=== PATIENT | male | born 1970 | race Caucasian/White ===

== ENCOUNTER 2020-11-03 21:48 | Emergency (ER) | payer MEDICAID ==
[~2020-11-03] VITALS: Ht 185.4 cm; Wt 108.9 kg
[2020-11-03 21:48] VITALS: BP 126/82
--- NOTE | 2020-11-03 21:50 | NUR ---
PT OFFLOADED TO LOBBY TO A/W BED.
--- NOTE | 2020-11-04 01:27 | NUR ---
PT AMBULATED TO BED #9
--- NOTE | 2020-11-04 01:57 | NUR ---
50 yo m bib self with c/c of painful abcesses 10/10 across bilat arms x2wks, thighs and legs xmonths d/t iv drug use. pt states pain worsens when touched and lessens when abcess is drained. pt states he drains abcesses on his own using clean sharp stuff. pt states he tried taking tylenol and ibuprofen, both did not help. hx: dm rx:metfromin nka
[2020-11-04] MEDS ORDERED: ceFAZolin 1,000 MG VIAL IM ONE (02:30)
--- NOTE | 2020-11-04 02:50 | NUR ---
EMT AT BEDSIDE CLEANSING AND WRAPPING SITE
[2020-11-04] MEDS ORDERED: CEPH-588 PO (03:18)
--- NOTE | 2020-11-04 03:29 | NUR ---
ERMD AT BEDSIDE.
[2020-11-04 03:30] VITALS: BP 126/82
== END 2020-11-04 03:30 | disposition home or self-care (01) ==
LOC: MED 21:48
DX: L02.818 Cutaneous abscess of other sites (principal); F17.210 Nicotine dependence, cigarettes, uncomplicated; Z79.2 Long term (current) use of antibiotics
CPT/HCPCS: 96372; 99283; J0690

== ENCOUNTER 2022-12-29 12:23 | Emergency (ER) | payer MEDICAID ==
[~2022-12-29] VITALS: Ht 172.7 cm; Wt 68.0 kg
[~2022-12-29 12:23] MED LIST: CEPH-588 PO
[2022-12-29 12:24] VITALS: BP 124/80; PULSE 70; RESP 20; TEMP 97.7; O2SAT 98
[2022-12-29] MEDS ORDERED: buprenorphine HCL 2 MG sublingual tab SL ONE (13:10)
[2022-12-29 13:18] VITALS: O2SAT 100
[2022-12-29 13:21] VITALS: BP 117/71; PULSE 91; RESP 28; O2SAT 100
[2022-12-29] MEDS ORDERED: BUPR1TAB45 SL ×3 (14:19→14:48)
== END 2022-12-29 14:43 | disposition home or self-care (01) ==
LOC: MED 12:23
DX: F11.23 Opioid dependence with withdrawal (principal); Z79.899 Other long term (current) drug therapy; Z79.2 Long term (current) use of antibiotics
CPT/HCPCS: 99283